=== PATIENT | male | born 1970 | race Caucasian/White ===

== ENCOUNTER 2019-09-03 18:33 | Emergency (ER) | payer OTHER, SELFPAY ==
[2019-09-03 18:35] VITALS: BP 122/68; PULSE 76; RESP 20; TEMP 36.6; O2SAT 98; BMI 27.1
[2019-09-03 19:03] VITALS: BP 120/82; PULSE 73; RESP 17; O2SAT 97
--- NOTE | 2019-09-03 19:13 | RAD_ITS ---
STUDY: X-RAY CHEST REASON FOR EXAM: Male, 49 years old. pt exposed to husky toilet bowel parts cleaner and bleach. pt feels like throat is swelling. pt with severe bronchial spasms and cough TECHNIQUE: Frontal view of the chest COMPARISON: None. FINDINGS: The lungs are clear and expanded. There is no demonstrated pleural abnormality. Normal size heart. Normal mediastinum and todd. Normal visualized pulmonary arteries. Normal visualized aortic arch and descending thoracic aorta. Normal visualized thoracic spine. Normal visualized ribs, clavicles, and shoulders. There is no demonstrated abnormality of the visualized soft tissue structures of the upper abdomen. RAD/Chest 1 View (Portable) IMPRESSION: Normal x-ray examination of the chest. Electronically Signed: Jostin Angeles, at 19:56 EDT Tel , Service support ,
[2019-09-03 19:14] VITALS: PULSE 76; RESP 16
[2019-09-03] MEDS: Ipratropium/Albuterol Sulfate 3 ML AMPUL.NEB INHALATION (19:14)
[2019-09-03 19:27] LABS: Absolute Lymphocyte Count 2.76 X10^3/uL (0.83-4.51); Absolute Neutrophil Count 6.9 X10^3/uL (2.0-7.7); Basophil# 0.05 X10^3/uL; Basophil% 0.5 % (0-1); Eosinophil# 0.09 X10^3/uL; Eosinophils% 0.8 % (0-5); Hematocrit 46.1 % (40-54); Hemoglobin 15.5 g/dL (13.0-16.5); Lymphocyte # 2.76 X10^3/ul (4.0); Lymphocyte % 25.7 % (19-41); Mean Corp Hgb Conc 33.6 g/dL (32-36); Mean Corpuscular Hgb 30.2 pg (27.0-32.0); Mean Corpuscular Volume 89.9 fL (80-94); Mean Platelet Vol. 10.7 fl (6.2-12.0); Monocyte# 0.85 X10^3/uL; Monocyte% 7.9 % (0-10); NRBC Flagged by Analyzer 0 % (0-5); Neutrophil # 6.92 X10^3/uL (2.7-7.7); Neutrophil % 64.6 % (47-70); Platelet Count 250 K/mm3 (150-450); RBC Distribution Width CV 12.8 % (11.6-14.6); RBC Distribution Width SD 41.5 fl (35.1-43.9); Red Blood Count 5.13 M/mm3 (4.6-6.2); White Blood Count 10.7 K/mm3 (4.4-11.0)
[2019-09-03 19:47] LABS: Anion Gap 3 (5-15); BUN 22 mg/dL (7-18); BUN/Creat Ratio 15.4 RATIO (10-20); Calcium,Total 9.3 mg/dL (8.5-10.1); Chloride 110 mmol/L (98-107); Creatinine, Serum 1.43 mg/dL (0.70-1.30); EST Glomerular Filtration Rate 56 mL/min (>60); Est Glom Filt Rate - Afr Amer 67 mL/min (>60); Estimated Creatinine Clearance 67.83 ml/min; Glucose 109 mg/dL (74-106); Potassium 3.8 mmol/L (3.5-5.1); Sodium Level 142 mmol/L (136-145)
--- NOTE | 2019-09-03 21:34 | ED.DCSUM_ITS ---
- ER Visit Summary Date of Service: 09/03/19 Chief Complaint: Shortness of breath History of Present Illness: The patient is a 49 M who presents with shortness of breath that began today. Patient states he was cleaning the bathroom. Patient states he was using bleach earlier and then opened a can of toilet bowl catch basin cleaner. states that the toilet bowl catch basin cleaner was very strong. Patient states his breathing feels like a burning and has been constant. Patient admits to a cough but denies any sputum production. Patient admits to subjective fevers and chills. Patient also admits to a sore throat and rhinorrhea. Patient denies any chest pain. Physical Examination: Vital signs are stable. Patient is afebrile. Patient is in no acute distress. Oral mucosa is pink and moist. Neck is supple. Trachea is midline. There is no JVD noted. Heart was regular rate and rhythm. Lungs are clear and equal bilaterally. Abdomen is soft. Bowel sounds are normal. There is no tenderness. There is no rebound or guarding noted. Skin is warm dry. Cranial nerves II through XII are intact. There are no focal motor or sensory deficits noted. Extremities are intact. There is no calf tenderness or edema. Test Results: CBC and basic metabolic profile were obtained. Creatinine was slightly elevated at 1.43. Portable chest x-ray was obtained. There is no acute cardiopulmonary process. This was interpreted by the radiologist and reviewed by myself. Emergency Department Course and Treatment: Patient was given a DuoNeb aerosol. Patient was feeling better on reevaluation. Patient was given a prescription f or an albuterol inhaler. Patient was instructed to follow-up with his primary care physician in 5 to 7 days. Patient understood and was agreeable with the plan. All questions were answered. Disposition: Discharge home Impression: Dyspnea This note was generated with [employer] dictation software. It may contain incorrect words, spelling, and punctuation that were not noted in review of the chart prior to signing ED Disposition - Plan for ED Patient: Disposition: Home or Assisted Living Diagnosis: Dyspnea Instructions: ED Dyspnea Prescriptions: Albuterol Inhaler [Ventolin Hfa] 1 - 2 puff INHALATION Q4H PRN PRN #1 inhaler PRN Reason: Wheezing Prescription Printed Referrals: Jose,Laxmi, DO [NON-STAFF] - 5-7 Days
[2019-09-03 21:48] VITALS: BP 129/75; PULSE 76; RESP 18; O2SAT 96
== END 2019-09-03 21:49 | disposition home or self-care (01) ==
PROVIDERS: Emergency Provider Emergency Medicine
DX: R06.00 Dyspnea, unspecified (principal); R11.2 Nausea with vomiting, unspecified; R05 Cough; J34.89 Other specified disorders of nose and nasal sinuses; J02.9 Acute pharyngitis, unspecified
CPT/HCPCS: 71045; 80048; 85025; 94640; 99284; A4216

== ENCOUNTER 2020-01-16 10:29 | Day surgery (SDC) | payer OTHER, SELFPAY ==
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
--- NOTE | 2020-01-15 13:03 | EKG12_ITS ---
Test Reason : PREOP Blood Pressure : / mmHG Vent. Rate : 079 BPM Atrial Rate : 079 BPM P-R Int : 166 ms QRS Dur : 108 ms QT Int : 366 ms P-R-T Axes : 066 050 036 degrees QTc Int : 419 ms Normal sinus rhythm Normal ECG Confirmed by TRINIDAD COLLINS MD ([id number]), make up editor GARRETT DEVI ([id number]) on 01/16/2020 8:48:20 AM Referred By: Jayde Underwood Confirmed By:TRINIDAD COLLINS MD
[2020-01-16 11:01] VITALS: BP 144/78; PULSE 63; RESP 16; TEMP 36.5; O2SAT 96; BMI 27.8
[2020-01-16] MEDS: Lactated Ringers 1,000 ML 75 ML IV ×2 (11:24→13:26)
--- NOTE | 2020-01-16 11:45 | DCINST_ITS ---
Discharge Diet: No Restrictions Discharge Activity: Return to Normal Activity, May not drive while taking narcotic pain medications. Lifting Restrictions: no lifting greater than 50 pounds for a month Call your doctor if your incision/area has: Continuous Slow Oozing, Foul Smelling Discharge Call your doctor if you observe: Fever of 101 or Higher Additional Instructions: Recommended pain control regimen - May take 600 mg ibuprofen (Motrin) and then in 3-4 hours, may take 650 mg acetaminophen (Tylenol), then in 3-4 hours may take 600 mg ibuprofen, then in 3- 4 hours may take 650 mg acetaminophen and so on for 2-3 days May take narcotic pain medication for pain that is not controlled by above and at night for comfort through the night Leave dressings in place May get dressings wet in shower - do not scrub in the area and pat dry Do not soak - no tub baths/swimming If dressing appears to be soiled/open at one end/no longer sealed - may remove dressing but leave site uncovered (do not replace with any type of dressing) - leave steristrips in place - may get wet but do not scrub in the area and pat dry For breast surgery - Wear supportive bra during the day Swelling and bruising will occur in the area, ice packs to the area may provide comfort, apply as tolerated Avoid excessive bouncing/jumping for at least two weeks For hernia surgery - Swelling and bruising will occur in the area of the incision and also the scrotum Ice packs applied to the area will help, apply as long as tolerated and for your comfort Also can elevate scrotum by lying in a Lazy-boy chair position with legs up and place a folded towel across your upper thighs, place scrotum on top of towel and this will help drain the extra fluid from the scrotum back into your torso Allergies/Adverse Reactions: Allergies No Known Allergies Allergy (Verified 01/12/20 13:31) Medications to take at Discharge Hydrocodone Bitart/Apap 5-325 [Goldonna 5MG-325MG] 1 tablet PO Q8H PRN PRN 5 Days #15 tablet 01/16/20 The following prescriptions were given: Hydrocodone Bitart/Apap 5-325 [Goldonna 5MG-325MG] 1 tablet PO Q8H PRN PRN 5 Days #15 tablet PRN Reason: Pain Transmission Status: Sent to [facility] Primary Care Physician: Vishnu Oakley MD [Primary Care Provider] - Test Results: Test results from this visit will be discussed in further detail at your follow- up appointment, if applicable. Please Follow Up With: Jayde Underwood MD - call When: to be seen in 1-2 weeks, please call for date and time, thank you
[2020-01-16] MEDS: Cefazolin 2 GM in 0.9% Normal Saline 100 ML IV (12:03)
[2020-01-16] MEDS: Lidocaine 1% /Epi 1:100 (20ml) 20 ML Vial (12:21)
--- NOTE | 2020-01-16 13:01 | OP.PCM_ITS ---
Report of Operation Date of Procedure: 01/16/20 Pre-Operative Diagnosis: recurrent left inguinal hernia Post-Operative Diagnosis: same as above Surgery/Procedure Performed:: repair of recurrent left inguinal hernia - incarcerated Description of Surgical Findings:: incarcerated preperitoneal fatty tissues in direct space of recurrent inguinal hernia (left) housing assistant property manager: Sharmaine Carreon Type of Anesthesia:: General Anesthesiologist: Javy Francis Specimen's removed: none Estimated Blood Loss (mL): < 10 ml Fluids Replaced: 800 ml RL Description of Procedure: After informed consent was obtained, patient was brought to the Operating Room. Appropriate time out protocol was followed. The patient was placed in the supine position. The patient was then placed under anesthesia by the anesthesia provider. The lower torso and the left groin area and genitalia were then prepped with a surgical skin preparation and appropriate sterile surgical drapes were placed. The anatomical landmarks were identified and after anesthetizing the skin and subcutaneous tissues with 0.25% Marcaine with epinephrine, a transverse skin incision was made above the level of the internal inguinal ring. The subcutaneous tissues were then sharply dissected down to the external oblique fascia and any hemorrhage was adequately controlled with electrocoagulation. The external oblique was then divided obliquely along the fibers and a muscle-splitting incision was then made to divide the internal oblique musculature and fascia. The transversalis fascia was then identified and was then incised parallel to the inferior hypogastric vessels. The preperitoneal space was then entered. Blunt dissection was then done to identify out Dominguez's ligament, the pubic tubercle and a large area surrounding these landmarks for placement of the mesh. The iliac vessels were identified. The patient was noted to have a recurrent hernia. The previous mesh that was placed slipped posteriorly, such that Hasselbach's triangle, there was a fascial defect noted with fatty preperitoneal tissues. These tissues were reduced back into the preperitoneal space, thus the hernia was reduced back into the preperitoneal cavity. The spermatic cord was identified and isolated to prevent its injury. There was no internal hernia sac identified. A medium left sided Bard 3D mesh was then positioned into the preperitoneal space. It was overlapped medially with the previous mesh. It was placed such that the medial aspect would be overlapping medial to the pubic tubercle and the inferior edge would be placed inferior to Dominguez's ligament. The remainder of the mesh was flattened out against the anterior abdominal wall. The mesh also covered the wound opening in the preperitoneal space. The internal oblique and transversalis fascia was then reapproximated using interrupted 0 prolene suture. One of the sutures was used to lock the mesh into position and secure it to the anterior abdominal wall. Hemostasis was carefully controlled with electrocoagulation. The external oblique fascia was then reapproximated using a running 0 Vicryl suture. This was carefully done to avoid any entrapment of blood vessels/nerves. Gibran's fascia was closed using Vicryl suture in an interrupted simple fashion. The skin incision was closed with 4-0 Monocryl in a running subcuticular fashion. Cavilon and Steri-Strips were used to reinforce the skin closure and appropriate sterile dressing was applied. Sponge, needle, and instrument count were verified and correct at the time of skin closure. The patient was brought to the Recovery Room in stable condition. Grafts/Implants Used: Bard 3D lot [id number] exp 2023-10-06 - Complications none noted - Admit VTE Documentation VTE Present on Admission: Yes VTE Mechan Device Prophylaxis: SCD's
[2020-01-16 13:18] VITALS: BP 144/78; BP 151/90; PULSE 85; RESP 16; TEMP 36.2; O2SAT 99
[2020-01-16 13:30] VITALS: BP 129/85; BP 144/78; PULSE 80; RESP 18; O2SAT 96
[2020-01-16 13:44] VITALS: BP 127/71; BP 144/78; PULSE 75; RESP 18; O2SAT 98
[2020-01-16 13:49] VITALS: BP 122/70; BP 144/78; PULSE 80; RESP 18; TEMP 36.1; O2SAT 97
[2020-01-16] MEDS: HYDROcodone Bitartrate/Apap 5/325 Tablet PO (14:44)
[2020-01-16 15:02] VITALS: BP 119/77; BP 144/78; PULSE 72; RESP 16; TEMP 36.4; O2SAT 97
== END 2020-01-16 15:03 | disposition home or self-care (01) ==
LOC: SDC 10:31 → AC 10:33
PROVIDERS: PCP Family Medicine; Referring Provider Surgery; Visit Provider Surgery
PROC: (CPT 49521; principal; 2020-01-16 12:05)
DX: K40.31 Unilateral inguinal hernia, with obstruction, without gangrene, recurrent (principal); Z20.828 Contact with and (suspected) exposure to other viral communicable diseases; F34.1 Dysthymic disorder; N40.0 Benign prostatic hyperplasia without lower urinary tract symptoms; Z86.718 Personal history of other venous thrombosis and embolism
CPT/HCPCS: 00830; 49521; 87426; 93005; C9803; J7120; C1781; J2405